=== PATIENT | female | born 1985 | race Two or more races ===

== ENCOUNTER 2023-06-10 12:45 | Emergency (ER) | payer OTHER ==
[~2023-06-10] VITALS: Ht 160 cm; Wt 92.0 kg
[2023-06-10 12:50] VITALS: TEMP 98.4
[2023-06-10] MEDS: METHOCARBAMOL 500 MG TABLET PO ONE (13:45)
[2023-06-10] MEDS: KETOROLAC TROMETHAMINE 60 MG/2 ML VIAL IM ONE (13:46)
[2023-06-10 14:41] VITALS: BP 129/78; PULSE 68; RESP 16
== END 2023-06-10 14:43 | disposition home or self-care (01) ==
LOC: EMS 12:59
DX: M54.50 Low back pain, unspecified (principal); Z88.6 Allergy status to analgesic agent; Z98.890 Other specified postprocedural states
CPT/HCPCS: 99283; 96372; J1885